=== PATIENT | male | born 1995 | race Caucasian/White ===

== ENCOUNTER 2021-02-26 12:19 | Emergency (ER) | payer OTHER ==
[~2021-02-26] VITALS: Ht 188 cm; Wt 72.6 kg
[~2021-02-26 12:19] MED LIST: AFRIN15 ML NS; ZOFRAN ODT4 MG PO
[2021-02-26 13:04] VITALS: BP 122/69
== END 2021-02-26 13:05 | disposition home or self-care (01) ==
LOC: M.ERS 12:19
DX: Z20.822 Contact with and (suspected) exposure to COVID-19 (principal)